=== PATIENT | female | born 1965 | race Caucasian/White ===

== ENCOUNTER 2016-07-02 21:10 | Inpatient (IN) | payer OTHER ==
[~2016-07-02] VITALS: Ht 165.1 cm; Wt 68.4 kg
--- NOTE | ~2016-07-02 | HC ---
[facility] [place] [address] CONSULTATION Name: ALIE KENYON Room #: 436-P ADM IN M.R.#: [id number] Admission: 07/02/16 Attend Phys: Boris Mclean Discharge: Date of : 67 Report #: [id number] THIS REPORT FOR: //name// CC: FAM unknown Boris Mclean ____ ____ REASON FOR CONSULTATION: The patient is a 51-year-old woman, who was admitted to [facility] with weakness, poor appetite, and jaundice over the past 1-2 weeks. HISTORY OF PRESENT ILLNESS: This patient admittedly reports she has a history of alcohol abuse. Apparently, this has been discussed in the past and she was told she had an alcoholic problem, but she never did anything about it. On the history and physical, it is reported that she consumes up to eight shots daily. When asked if she consumed more in the past, she admitted to at one point, consuming 12-15 shots per day. Her last alcohol intake was about 3 days ago. In the past 1-2 weeks, she has been feeling bad. She has had some nausea and dry heaves. She said in her own words, she felt "yucky." She also reports that she has not been eating in the past 1-2 weeks. Family members noted that she turned jaundiced. She says she has never noted that before and was not aware that she was jaundiced. She became more lethargic and confused and was brought to [facility] and she is admitted to the Intensive Care Unit. She did have a drop in her blood pressure and has required pressors in the ICU. PAST MEDICAL HISTORY: She has been a long-term cigarette smoker and has chronic obstructive pulmonary disease and we treated for that problem. She has peripheral neuropathy and she says she does not know why she has the neuropathy and she has not been taking her medicines recently. She has been treated for reflux disease and reports that Prilosec does a good job. She does not have any esophageal dysphagia. She has vitamin D deficiency and she has been treated for depression. PAST SURGICAL HISTORY: Several fractures are thought to be related to falls and related to alcohol abuse. She has had surgeries for those fractures. She has had right inguinal hernia repair, left knee arthroscopy, and bilateral tube ligation. ALLERGIES: She reports PENICILLIN and she is not aware of any other allergies. HOME MEDICATIONS: Are little difficult because she does not answer all questions. As best I can tell, she has been taking BuSpar and Proventil inhaler. Apparently, she is supposed to be on Lyrica and gabapentin, but has not taken those medications. She does take her Prilosec. She denies use of nonsteroidals. [facility] [address] [place] [address] CONSULTATION Name: ALIE KENYON Room #: 436-P ADM IN M.R.#: [id number] Admission: 07/02/16 Attend Phys: Boris Mclean Discharge: Date of : 67 Report #: [id number] FAMILY HISTORY: No family history of colon cancer. She said she is not aware of any family history of liver disease. Her mother was an alcoholic, but the patient states she does not know why her mother . SOCIAL HISTORY: Long-term alcoholic and she reports heavily the past 5 years, she smokes up to a pack a day, but says she has only been smoking a few cigarettes in the recent weeks. She lives with her boyfriend. She does smoke marijuana. She is on disability for her peripheral neuropathy. REVIEW OF SYSTEMS: Was very difficult to obtain because the patient at times just would not answer questions. CENTRAL NERVOUS SYSTEM: She reports she has not had any seizures or strokes. HEENT: She said yes, but would not give specifics. PULMONARY: Chronic lung disease and uses inhaler. CARDIOVASCULAR: She has had some chest pain in the past, but does not give specifics. GASTROINTESTINAL: She has not been jaundiced before. Essentially, the rest of the review, she just did not answer questions. PHYSICAL EXAMINATION: GENERAL: The patient is a very ____ woman, who is awake. She is alert. She is fairly well oriented and knew year, month, date and was off by one day on the day of the week. She did answer these questions but she was very slow with her responses. VITAL SIGNS: Blood pressure currently 99/66, pulse rate of 108, her blood pressure is currently 99/68. Initial blood pressures with systolics in the 60s and 70s. HEENT: Bilateral scleral icterus. Pupils equal and round. Oropharynx clear. NECK: Supple, no thyromegaly. CHEST: Occasional scattered rhonchi, no wheezes, good breath sounds. HEART: Regular rate and rhythm, S1, S2. ABDOMEN: Normal bowel sounds, soft. Mild diffuse tenderness. No point tenderness. No rebound, no rigidity. I do not appreciate ascites. RECTAL: Not done. EXTREMITIES: Without cyanosis, clubbing, or edema. NEUROLOGIC: Oriented to ____ as noted above. She is markedly tremulous in both upper extremities as well as her head. I cannot discern asterixes from a generalized tremor. She moves all 4 extremities. SKIN: She is icteric. She does have spider nevi on her face. ASSESSMENT AND PLAN: 1. Jaundice, likely secondary to alcohol. We will check hepatitis serology, in particular hepatitis C. 2. Altered mental status, alcohol withdrawal versus encephalopathy. She is at least mildly encephalopathic. When asked to do math computations, she said, "I [facility] [address] [place] [address] CONSULTATION Name: ALIE KENYON Room #: 436-P ADM IN M.R.#: [id number] Admission: 07/02/16 Attend Phys: Boris Mclean Discharge: Date of : 67 Report #: [id number] cannot concentrate." Agree with lactulose. 3. Hypertension. This could be related to sepsis, also may be related to metabolic issues and liver disease and poor intake and dehydration. 4. Anemia. Initial hemoglobin 5.9. MCV is slightly elevated at 101.9. Platelets are normal. White count was initially 18,300 and has dropped to 9.8. She denies rectal bleeding. 5. Questionable urinary tract infection. 6. Alcohol abuse, this she admits has been discussed in the past, but she has made no efforts to stop. 7. Chronic obstructive pulmonary disease, smoker. 8. Protein calorie malnutrition. 9. Nausea and vomiting, multifactorial, related to liver disease and renal problems: 10. Peripheral neuropathy, etiology unknown. 11. Kidney injury, likely acute. Drop in creatinine from 3.0 to 2.5 is a positive sign with regards to possible hepatorenal. This may be severe dehydration due to inadequate oral intake. Continue to monitor. LABORATORY STUDIES: Hemoglobin 5.9 and 11.8 after transfusion; MCV normal; white count initially 18.3, now normal; platelets are normal. INR was initially 1.7 and 1.9 this morning. Sodium 127; potassium of 3.4, it was initially 2.2; creatinine was initially 3, now down to 2.5; BUN of 17; lactic acid of ____; blood sugar 188; serum iron low at 23. TIBC low at 95, saturation 24%, ferritin somewhat elevated 594, total bilirubin was 11.6 and now down to 9.4, Ammonia elevated at 69. Lipase normal, tox screen positive for opioids and marijuana, her serum alcohol less than 10. Urinalysis positive for nitrites, bilirubin, positive for leukocyte esterase. She has greater than 25 wbcs in her urine. Radiologic: Ultrasound reveals hepatosplenomegaly. Chest x-ray negative. CT was done without contrast, which revealed a diffusely enlarged liver with evidence of fatty infiltration, also gallbladder sludge without evidence of acute cholecystitis. Spleen, which was 15.3 cm, pancreas unremarkable. Bowel was normal. She has diverticulosis, but no diverticulitis, small amount of free fluid in the pelvis. She does not have significant ascites. <ELECTRONICALLY SIGNED> By: Mc Perla MD 07/04/16 1805 [id number] [id number] Mc Perla MD /nt
--- NOTE | ~2016-07-02 | H ---
[facility] [place] [address] HISTORY AND PHYSICAL Name: ALIE KENYON Room #: 436-P ADM IN M.R.#: [id number] Admission: 07/02/16 Attend Phys: Boris Mclean Discharge: Date of : 67 Report #: [id number] THIS REPORT FOR: //name// CC: FAM unknown Boris Mclean DATE OF ADMISSION: 07/02/2016 ATTENDING PHYSICIAN: Jane Mclean PRIMARY CARE PHYSICIAN: eBti Lam M.D. CHIEF COMPLAINT: Dizziness and weakness. HISTORY OF PRESENT ILLNESS: The patient is a 51-year-old female, who came into the ER stating she has not been feeling well for about a week. She has been having persistent nausea with some dry heaving and overall has not been eating well. Her sister had told her she was starting to look yellow. The patient had not noticed this herself. She denies any history of kidney or liver problems. She did noticed that her urine was very dark and foul smelling and she was also voiding more frequently. She denies any diarrhea. Denies any black stools. Denies any fevers or chills. She does have some abdominal pain, which has been achy and constant. She also reports some dizziness, and this was worse with standing. She does drink alcohol regularly up to 8 shots of whiskey per day, which she drinks in the evenings. Because she has been feeling so bad, she has not had any alcohol to drink in the last 3 days. Per her sister, the patient was acting confused as well. She really has not been taking any of her medications ever previously prescribed, other than her depression medicine. She is not on any narcotics. In the ER, she was noticed to be quite jaundiced and her labs did reveal probable sepsis. She drops her blood pressure in the ER and has since had multiple IV fluids as well as center line placed and has required vasoactive medicines to keep her blood pressure up at this time. She is currently being seen in the ICU. She is drowsy, but arouses easily and able to answer most questions. PAST MEDICAL HISTORY: COPD, peripheral neuropathy, GERD, vitamin D deficiency, and depression. PAST SURGICAL HISTORY: Right tibia fibula repair after fractures x 2, right inguinal hernia repair, left knee scope, bilateral tubal ligation. ALLERGIES: PENICILLIN, unknown reaction. HOME MEDICATIONS: She has really only been taking her BuSpar and her Proventil inhaler p.r.n. She was supposed to be taking Lyrica and gabapentin, but that she has been out of these medications for at least a month. [address] [address] HISTORY AND PHYSICAL Name: ALIE KENYON Room #: [address] [place] [address] IN M.R.#: [id number] Admission: 07/02/16 Attend Phys: Boris Mclean Discharge: Date of : 67 Report #: [id number] SOCIAL HISTORY: The patient drinks 8 shots of whiskey per day in the evenings. She says she has only been drinking this heavily for the last 5 years. She has not had any drinks from the last 3 days, she does smoke currently 3 cigarettes per day, but has previously been smoking up to 1 pack of cigarettes per day. She has been smoking on and off for 15 years. She lives at home with her boyfriend. She does smoke marijuana rarely. She denies any history of IV drug use. She is on disability. FAMILY HISTORY: Significant for emphysema in her mother and CHF in her father. REVIEW OF SYSTEMS: [facility] from [facility] were reviewed and over the course of the last few years, she was seen there multiple times for fractures related to falls associated with alcohol intoxification and all other 12-point review of systems was reviewed with the patient, otherwise negative unless stated in the HPI. PHYSICAL EXAMINATION: GENERAL: The patient is somewhat lethargic female in no acute distress. VITAL SIGNS: Temperature 36.7, heart rate is initially 118, it is now 93, respirations 20, blood pressure is 87/51, oxygen 94% on 2 liters O2. HEENT: PERRLA. Sclerae is icteric. Oral mucosa is pink and dry. She has no saliva. NECK: Supple, no JVD noted. CARDIOVASCULAR: Normal S1, S2. No murmurs, rubs or gallops. RESPIRATORY: Breath sounds are with some scattered expiratory wheezes bilaterally, diminished in bilateral lower lobes. The patient does have a loose nonproductive cough. ABDOMEN: Round and somewhat firm. She is diffusely tender, but no guarding or rigidity. She does have some palpable hepatomegaly. Bowel sounds are positive. VASCULAR: 1+ bilateral lower extremity edema. Pedal pulses are 2+. NEUROLOGIC: The patient is somewhat sleepy, but arouses easily and is able to answer most questions. She will follow commands. She is very shaking and her bilateral upper extremities without some asterixis. I did not have her ambulate. Speech is clear. SKIN: She is very jaundiced throughout most evident in her face and there are few scattered bruises, but no open wounds. GENITOURINARY: She does have a Eugene catheter in place, draining very small amount of very concentrated lucio colored urine. LABORATORY DATA AND DIAGNOSTICS: WBC is 18.3 with bands of 14%, hemoglobin initially was 7.6, but did drop to 5.9 and platelets 306. Sodium 128, potassium 2.2, BUN 17, creatinine 3.0. Glucose 137. Lactic acid is 5.1, bilirubin 11.6. LFTs showed an AST of 91. ALT of 23 and alkaline phosphatase of 272. Albumin is 1.4, lipase is 33. test is negative and INR 1.7, magnesium is 1.2. Chest x-ray showed no acute cardiopulmonary process. There was prior old healed left rib fracture and chronic appearing nonunion fracture of the distal [facility] [address] [place] [address] HISTORY AND PHYSICAL Name: ALIE KENYON Room #: [facility]- ADM IN ..#: [id number] Admission: 07/02/16 Attend Phys: Boris Mclean Discharge: Date of : 67 Report #: [id number] right clavicle and abdominal ultrasound showed normal gallbladder. She does have hepatosplenomegaly. There is no mass or ductal dilatation. EKG shows sinus rhythm with borderline prolonged IN interval. UA showed positive nitrites, 3+ leukocyte esterase, many WBCs, many bacteria, 1+ ketones. ASSESSMENT AND PLAN: 1. Sepsis, likely related to urinary tract infection. We will send urine for culture and follow blood cultures as well. Continue Levaquin. 2. Acute renal failure. She denies any history of chronic kidney disease. This is likely prerenal due to dehydration versus hepatorenal syndrome. We will continue with hydration and follow labs. 3. Severe anemia. Her hemoglobin did drop after IV fluids. She may have possible gastrointestinal bleed, as rectal exam stool did reveal trace hemoccult positive in the ER. We will transfuse 2 units of blood, as this will help with her hypotension and follow labs. 4. Probable liver cirrhosis. This is likely alcohol ____. She does have associated elevated bilirubin as well as liver function test with coagulopathy and possible ascites. GI is consulted for further recommendations. We will go ahead and order a noncontrast CT of the abdomen to further evaluate for ascites, as significant enough to perform paracentesis. Also check lyly-fetoprotein level. 5. Alcohol abuse. The patient has been advised to quit. We will be placed on modified alcohol withdrawal protocol and use Ativan p.r.n. 6. Tobacco abuse. The patient has been advised to quit. 7. Hypokalemia and hypomagnesium. We will replace these and follow labs. 8. Tzlcb-gf-fneqtal respiratory failure due to chronic obstructive pulmonary disease. We will add IV steroids and breathing treatments and Pulmonary is consulted. 9. Severe protein calorie malnutrition. We will work with high protein supplements. 10. Nausea, vomiting, likely related to her kidney and liver problems and infection. Continue supportive care with IV fluids and antiemetics. 11. Deep venous thrombosis prophylaxis, place sequential compression devices. We will continue to follow the patient closely throughout the hospitalization and make changes based on clinical status. <ELECTRONICALLY SIGNED> By: KALEE Johnson 07/05/16 0608 0712 0933 KALEE Johnson /nt
--- NOTE | ~2016-07-02 | HC ---
[facility] [place] [address] CONSULTATION Name: ALIE KENYON Room #: 436-P ADM IN M.R.#: [id number] Admission: 07/02/16 Attend Phys: Boris Mclean Discharge: Date of : 67 Report #: [id number] THIS REPORT FOR: //name// CC: FAM unknown Boris Mclean HISTORY OF PRESENT ILLNESS: The patient is a 51-year-old white female who was admitted with dizziness and weakness. She has a history of ETOH abuse up to 8 shots per day of whisky for which she has taken over the last 5 years. She was noted to have sepsis with acute renal insufficiency. She has acute on chronic liver failure, noted to have delirium tremens for which she has been receiving intermittent Valium, protein-calorie malnutrition, acute renal insufficiency, and urinary tract infection. She does have a peripheral neuropathy with bilateral lower extremity pain, dysesthesias, and decreased strength. She also was noted to have acute alcohol withdrawal with alcoholic hepatitis. Ammonia level has been rising and she has hepatic encephalopathy. Her last pneumonia was 107, which is an increase from 63. We are seeing her in rehabilitation medicine consultation. PAST MEDICAL HISTORY: Includes COPD, peripheral neuropathy, GERD, vitamin D deficiency, and depression. She has had a history of previous falls related to alcohol intoxication. PAST SURGICAL HISTORY: Includes a right tibia and fibula repair after fractures times 2, right inguinal hernia repair, and left knee scope. ALLERGIES: PENICILLIN, unknown reaction. MEDICATIONS: Please see the full medication listing. HABITS: Tobacco up to 1 pack per day. Alcohol abuse as noted above. SOCIAL HISTORY: She lives with a significant other in either an apartment or a mobile home. There were two sisters that live locally as well as a couple of daughters. There are plans for her to eventually go home with one of the daughters when she is doing better per case management notes. Premorbidly, she apparently slept until noon and was limited in her premorbid ambulation. DIET: She is currently on a pureed nectar thickened liquid diet per speech therapy. REVIEW OF SYSTEMS: Did not offer any current complaints of chest pain, shortness of breath or abdominal discomfort. She does have chronic lower extremity dysesthetic pain and complaints of distal weakness. PHYSICAL EXAMINATION: GENERAL: A 51-year-old white female, appears older than stated age. [address] [address] CONSULTATION Name: ALIE KENYON Room #: 436-P [facility] IN M.R.#: [id number] Admission: 07/02/16 Attend Phys: Boris Mclean Discharge: Date of : 67 Report #: [id number] VITAL SIGNS: Temperature 36.7, pulse 95, respirations 20, and blood pressure 128/64. NEUROLOGIC: She is alert. She was able to tell the place and the year. She does follow basic 1 step commands. Facies appeared to be symmetric. ABDOMEN: Obese, soft, nontender. EXTREMITIES: Functional range of motion of both upper extremities with strength a grade 3+/5. DTRs are decreased. Lower extremities, no focal calf swelling, functional range of motion with strength a grade 3+ to 4-/5. She does have decreased sensation in a stocking distribution, notes some painful dysesthesias of the lower extremities. Functionally, she is max assist with sit to stand transfers holding the therapist's arms. She was able to walk 8 feet with min assist in physical therapy. This was with the front-wheeled walker. She has essentially ambulated 4 feet forward and backward. ASSESSMENT: A 51-year-old white female with the following problem list: 1. Peripheral polyneuropathy. 2. Hepatic encephalopathy. 3. Delirium tremens. 4. End-stage liver disease. 5. Question hepatorenal. 6. Acute renal insufficiency. 7. Alcoholism. 8. Sepsis. 9. Urinary tract infection. 10. Alcoholic hepatitis. PLAN: She is being monitored regarding her rising ammonia level. She is being treated intermittently with Valium for alcohol withdrawal. She is being monitored regarding renal insufficiency. She is slowly progressing with her therapies and was able to ambulate the short distance today noted above. She certainly may be a candidate for an acute in-hospital inpatient rehabilitation stay to maximize her functional independence and strength and endurance to try to get back into the home setting. The multiple behavioral consultant physicians could continue to follow along with her while she is on the rehab spring as she does have considerable medical complexity issues. At this point, we will continue to follow along with you and check with insurance regarding rehab unit transfer as she further medically stabilizes. Thank you for asking us to assist in this patient's care. By: [id number] Feliz Colón MD /nt
--- NOTE | ~2016-07-02 | EKG ---
[address] [place] [address] ELECTROCARDIOGRAM REPORT Name: KENYONALIE Room #: 240-P ADM IN M.R.#: [id number] Admission: 07/02/16 Attend Phys: Boris Mclean Discharge: Date of : 67 Report #: [id number] THIS REPORT FOR: //name// [facility] ED Test Date: 2016-07-02 Test Time: 21:45:41 Pat Name: ALIE KENYON Department: Room: 240 Gender: F Technical Consultant: ROXANA : 1965 Requested By: Dejan Santiago Order Number: [id number] MD: Angel Hernandez Measurements Intervals [place] Rate: 94 P: 71 IA: 199 QRS: 61 QRSD: 97 T: QT: 426 QTc: 533 Interpretive Statements Sinus rhythm Borderline prolonged IA interval Nonspecific ST and T wave abnormality Artifact in lead(s) I,aVR,aVL,aVF No previous ECG available for comparison Electronically Signed On 07-03-2016 11:51:17 CDT by Angel Hernandez [email or web address] <ELECTRONICALLY SIGNED> By: Angel Hernandez MD, [facility] 07/03/16 1151 2145 2145 Angel Hernandez MD, [facility] /EPI
[2016-07-02 21:11] VITALS: BP 87/51
[2016-07-02 21:45] LABS: HEMATOCRIT 22.7 % (37.0-47.0); HEMOGLOBIN 7.6 gm/dL (12.0-15.0); MCH 34.1 pg (26.0-34.0); MCHC 33.7 g/dL (28.0-37.0); MCV 101.1 fL (80.0-100.0); PLATELET COUNT 306 thou/uL (150-400); RBC 2.24 mil/uL (4.20-5.00); RDW 17.3 % (10.5-14.5); WBC 18.3 thou/uL (4.0-11.0)
[2016-07-02 21:47] LABS: MANUAL DIFF YES
[2016-07-02 22:05] LABS: ANION GAP 16 mmol/L (7-16); BUN 17 mg/dL (7-18); CALCIUM 7.7 mg/dL (8.5-10.1); CHLORIDE 87 mmol/L (98-107); CO2 25 mmol/L (21-32); SODIUM 128 mmol/L (136-145)
[2016-07-02 22:10] LABS: ALBUMIN 1.4 g/dL (3.4-5.0); ALKALINE PHOSPHATASE 272 U/L (46-116); SGOT 91 U/L (15-37); SGPT 23 U/L (30-65); TOTAL BILIRUBIN 11.6 mg/dL (<0.1-1.0); TROPONIN-I < 0.04 ng/mL (<0.04-0.07)
[2016-07-02 22:15] LABS: POTASSIUM 2.2 mmol/L (3.5-5.1)
[2016-07-02 22:29] LABS: ABSOLUTE NEUTROPHILS 16.1 thou/uL (1.4-8.2); TOTAL CELL COUNT 100
[2016-07-02 22:33] LABS: ANISOCYTOSIS 1+; POLYCHROMASIA 3+
[2016-07-02 22:39] LABS: GLUCOSE 137 mg/dL (74-106); TOTAL PROTEIN 5.8 g/dL (6.4-8.2)
[2016-07-02 23:11] LABS: URINE BILIRUBIN 3+ (Negative); URINE BLOOD 1+ (Negative); URINE COLOR BROWN; URINE GLUCOSE-RANDOM* TRACE (Negative); URINE KETONES 1+ (Negative); URINE LEUKOCYTES-REFLEX 3+ (Negative); URINE PROTEIN (DIPSTICK) 2+ (Negative); URINE UROBILINOGEN >= 8.0 E.U./dl (0.2-1.0)
[2016-07-02 23:13] LABS: ICTOTEST (BILI CONFIRMATORY) Positive (Negative)
[2016-07-02 23:25] LABS: CASTS None Seen /LPF (None Seen); SQUAMOUS None Seen /LPF (0-3)
[2016-07-02 23:26] LABS: CRYSTALS None Seen /LPF (None Seen); TRANSITIONAL EPITHEL CELL 4-10 Moderate /LPF (None Seen); URINE RBC 0-2 Rare /HPF (0-2); URINE WBC-REFLEX >25 Many /HPF (0-5)
[2016-07-03] VITALS (60 sets, daily range): BP systolic 68–125; BP diastolic 48–95
[2016-07-03 00:29] LABS: APTT 34.9 Seconds (24.5-32.8); INR 1.7; PROTIME 17.4 Seconds (9.3-11.4)
[2016-07-03 01:10] LABS: MCH 34.4 pg (26.0-34.0)
[2016-07-03 01:11] LABS: MCHC 33.8 g/dL (28.0-37.0); MCV 101.9 fL (80.0-100.0); RBC 1.73 mil/uL (4.20-5.00); RDW 17.3 % (10.5-14.5); WBC 9.8 thou/uL (4.0-11.0)
[2016-07-03 01:21] LABS: MAGNESIUM 1.2 mg/dL (1.8-2.4)
[2016-07-03 01:24] LABS: HEMOGLOBIN 5.9 gm/dL (12.0-15.0)
[2016-07-03 01:25] LABS: HEMATOCRIT 17.6 % (37.0-47.0)
[2016-07-03 01:40] LABS: ABG SAMPLE TYPE VENOUS; BE(vivo) 1.3 mmol/L (-2 to +3); HCO3 26.3 mmol/L (22.0-26.0); LACTATE 2.93 mmol/L (0.5-2.0); O2(CT) 5.6 mL/dL (15.0-23.0); O2Hb VENOUS 51.4 (65.0-85.0); PCO2 VENOUS 43.5 mmHg (41.0-51.0); PO2 VENOUS 32.8 mmHg (35.0-45.0); STICK SITE LINE; sO2 VENOUS 62.7 % (65.0-85.0); tCO2 27.6 mmol/L (24.0-30.0)
[2016-07-03 01:49] LABS: ABG SAMPLE TYPE ARTERIAL; BE(vivo) 1.3 mmol/L (-2 to +3); HCO3 25.5 mmol/L (22.0-26.0); LACTATE 3.09 mmol/L (0.5-2.0); O2(CT) 11.5 mL/dL (15.0-23.0); PCO2 38.2 mmHg (35.0-45.0); PO2 74.1 mmHg (80.0-100.0); STICK SITE L.RADIAL; pH 7.442 (7.360-7.450); sO2 95.4 % (92.0-98.0); tCO2 26.7 mmol/L (24.0-30.0)
[2016-07-03 01:52] LABS: CALCIUM 6.7 mg/dL (8.5-10.1); CREATININE 2.5 mg/dL (0.6-1.0); TOTAL BILIRUBIN 9.4 mg/dL (<0.1-1.0)
[2016-07-03 02:10] LABS: POTASSIUM 2.6 mmol/L (3.5-5.1); TOTAL PROTEIN 4.9 g/dL (6.4-8.2)
[2016-07-03 02:14] LABS: FIBRINOGEN 274.8 mg/dL (210-360); INR 1.9; PROTIME 19.3 Seconds (9.3-11.4)
[2016-07-03 02:26] LABS: ABG SAMPLE TYPE VENOUS; BE(vivo) 1.6 mmol/L (-2 to +3); HCO3 25.9 mmol/L (22.0-26.0); O2(CT) 4.5 mL/dL (15.0-23.0); O2Hb VENOUS 46.3 (65.0-85.0); PO2 VENOUS 31.6 mmHg (35.0-45.0); STICK SITE LINE; sO2 VENOUS 63.2 % (65.0-85.0); tCO2 27.1 mmol/L (24.0-30.0)
[2016-07-03 02:34] LABS: APTT 38.2 Seconds (24.5-32.8)
[2016-07-03 03:31] LABS: ABG SAMPLE TYPE VENOUS; BE(vivo) -1.4 mmol/L (-2 to +3); HCO3 22.8 mmol/L (22.0-26.0); LACTATE 2.09 mmol/L (0.5-2.0); O2(CT) 4.7 mL/dL (15.0-23.0); O2Hb VENOUS 44.9 (65.0-85.0); PCO2 VENOUS 35.9 mmHg (41.0-51.0); STICK SITE LINE; sO2 VENOUS 61.2 % (65.0-85.0); tCO2 23.9 mmol/L (24.0-30.0)
[2016-07-03 04:27] LABS: ABG SAMPLE TYPE VENOUS; BE(vivo) -2.3 mmol/L (-2 to +3); HCO3 22.1 mmol/L (22.0-26.0); O2(CT) 6.8 mL/dL (15.0-23.0); O2Hb VENOUS 59.6 (65.0-85.0); PCO2 VENOUS 35.9 mmHg (41.0-51.0); STICK SITE LINE; sO2 VENOUS 71.5 % (65.0-85.0); tCO2 23.2 mmol/L (24.0-30.0)
[2016-07-03 04:35] LABS: PHOSPHORUS 2.2 mg/dL (2.5-4.9)
[2016-07-03 04:54] LABS: % SATURATION 24 % (20-39); IRON 23 ug/dL (50-170); TIBC 95 ug/dL (250-450); UIBC 72 ug/dL
[2016-07-03 05:32] LABS: AMP/METHAMP Negative (Negative); BARBITURATES Negative (Negative); BENZODIAZEPINES Negative (Negative); COCAINE Negative (Negative); METHADONE Negative (Negative); OPIATES POSITIVE (Negative); PCP Negative (Negative); THC POSITIVE (Negative)
[2016-07-03 05:41] LABS: ABG SAMPLE TYPE VENOUS; BE(vivo) -0.7 mmol/L (-2 to +3); HCO3 23.5 mmol/L (22.0-26.0); LACTATE 1.94 mmol/L (0.5-2.0); O2(CT) 8.9 mL/dL (15.0-23.0); O2Hb VENOUS 68.2 (65.0-85.0); PCO2 VENOUS 36.5 mmHg (41.0-51.0); STICK SITE LINE; sO2 VENOUS 76.7 % (65.0-85.0); tCO2 24.6 mmol/L (24.0-30.0)
[2016-07-03 05:54] LABS: CALCIUM 6.9 mg/dL (8.5-10.1); CREATININE 2.6 mg/dL (0.6-1.0); POTASSIUM 3.1 mmol/L (3.5-5.1)
[2016-07-03 06:03] LABS: FERRITIN 594 ng/mL (8-252)
[2016-07-03 06:04] LABS: FIBRINOGEN 295.6 mg/dL (210-360); INR 1.8; PROTIME 18.3 Seconds (9.3-11.4)
[2016-07-03 06:51] LABS: ABG SAMPLE TYPE VENOUS; BE(vivo) -10.1 mmol/L (-2 to +3); HCO3 13.9 mmol/L (22.0-26.0); LACTATE 0.88 mmol/L (0.5-2.0); O2(CT) 5.7 mL/dL (15.0-23.0); O2Hb VENOUS 69.7 (65.0-85.0); PCO2 VENOUS 23.3 mmHg (41.0-51.0); PO2 VENOUS 41.5 mmHg (35.0-45.0); STICK SITE LINE; sO2 VENOUS 78.2 % (65.0-85.0); tCO2 14.6 mmol/L (24.0-30.0)
[2016-07-03 10:08] LABS: HEMATOCRIT 34.9 % (37.0-47.0)
[2016-07-03 10:11] LABS: HEMOGLOBIN 11.8 gm/dL (12.0-15.0)
[2016-07-03 10:19] LABS: CALCIUM 7.3 mg/dL (8.5-10.1); CREATININE 2.5 mg/dL (0.6-1.0); POTASSIUM 3.4 mmol/L (3.5-5.1)
[2016-07-03 10:22] LABS: APTT 30.1 Seconds (24.5-32.8); FIBRINOGEN 342.3 mg/dL (210-360); INR 1.7; PROTIME 17.8 Seconds (9.3-11.4)
[2016-07-04] VITALS (26 sets, daily range): BP systolic 83–110; BP diastolic 55–74
[2016-07-04 04:44] LABS: HEMATOCRIT 26.2 % (37.0-47.0); MCH 33.3 pg (26.0-34.0); MCHC 34.6 g/dL (28.0-37.0); PLATELET COUNT 181 thou/uL (150-400); RBC 2.72 mil/uL (4.20-5.00); RDW 20.2 % (10.5-14.5); WBC 8.2 thou/uL (4.0-11.0)
[2016-07-04 04:47] LABS: INR 1.5
[2016-07-04 04:52] LABS: HEMOGLOBIN 9.1 gm/dL (12.0-15.0); MCV 96.4 fL (80.0-100.0)
[2016-07-04 04:53] LABS: MANUAL DIFF YES
[2016-07-04 05:13] LABS: ALBUMIN 1.2 g/dL (3.4-5.0); CALCIUM 6.3 mg/dL (8.5-10.1); CREATININE 2.3 mg/dL (0.6-1.0); MAGNESIUM 1.9 mg/dL (1.8-2.4); POTASSIUM 3.2 mmol/L (3.5-5.1); TOTAL BILIRUBIN 9.8 mg/dL (<0.1-1.0); TOTAL PROTEIN 4.8 g/dL (6.4-8.2)
[2016-07-04 05:44] LABS: ABSOLUTE NEUTROPHILS 7.5 thou/uL (1.4-8.2); ANISOCYTOSIS 3+; MACROCYTES 2+; TOTAL CELL COUNT 100
[2016-07-04 05:45] LABS: MICROCYTES 1+
[2016-07-04 14:08] LABS: HEPATITIS C VIRUS AB <0.1 (0.0-0.9)
[2016-07-05 01:10] LABS: 25-HYDROXY TOTAL 22.3 ng/mL (30.0-100.0)
[2016-07-05 03:43] LABS: HEMATOCRIT 26.4 % (37.0-47.0); MCH 33.1 pg (26.0-34.0); MCHC 34.1 g/dL (28.0-37.0); MCV 97.2 fL (80.0-100.0); PLATELET COUNT 192 thou/uL (150-400); RBC 2.71 mil/uL (4.20-5.00); RDW 20.3 % (10.5-14.5); WBC 8.4 thou/uL (4.0-11.0)
[2016-07-05 03:45] LABS: MANUAL DIFF YES
[2016-07-05 03:56] LABS: ALBUMIN 1.2 g/dL (3.4-5.0); CREATININE 2.2 mg/dL (0.6-1.0); MAGNESIUM 1.7 mg/dL (1.8-2.4); POTASSIUM 3.1 mmol/L (3.5-5.1); TOTAL BILIRUBIN 6.6 mg/dL (<0.1-1.0)
[2016-07-05 04:04] LABS: CALCIUM 5.6 mg/dL (8.5-10.1)
[2016-07-05 04:29] LABS: INR 1.3; PROTIME 13.4 Seconds (9.3-11.4)
[2016-07-05 04:37] LABS: ABSOLUTE NEUTROPHILS 7.7 thou/uL (1.4-8.2); ANISOCYTOSIS 2+; MACROCYTES 1+; TOTAL CELL COUNT 100
[2016-07-05 04:38] LABS: MICROCYTES 1+; POLYCHROMASIA 1+
[2016-07-05 04:54] VITALS: BP 113/65
[2016-07-05 06:08] LABS: FREE T4 0.79 ng/dL (0.82-1.77)
[2016-07-05 08:00] VITALS: BP 112/76
[2016-07-05 11:47] VITALS: BP 125/84
[2016-07-05 12:08] LABS: CERULOPLASMIN 25.8 mg/dL (19.0-39.0)
[2016-07-05 16:00] VITALS: BP 116/66
[2016-07-05 20:03] VITALS: BP 124/71
[2016-07-05 23:38] VITALS: BP 128/60
[2016-07-06 04:40] VITALS: BP 132/89
[2016-07-06 05:22] LABS: ALBUMIN 1.3 g/dL (3.4-5.0); CALCIUM 6.2 mg/dL (8.5-10.1); CREATININE 1.9 mg/dL (0.6-1.0); MAGNESIUM 1.5 mg/dL (1.8-2.4); PHOSPHORUS 1.9 mg/dL (2.5-4.9); POTASSIUM 3.1 mmol/L (3.5-5.1); TOTAL BILIRUBIN 5.2 mg/dL (<0.1-1.0)
[2016-07-06 05:35] LABS: TOTAL PROTEIN 4.7 g/dL (6.4-8.2)
[2016-07-06 08:00] VITALS: BP 115/84
[2016-07-06 09:09] LABS: MITOCHONDRIAL ANTIBODY 4.8 Units (0.0-20.0)
[2016-07-06 14:36] LABS: POTASSIUM 3.2 mmol/L (3.5-5.1)
[2016-07-06 16:26] VITALS: BP 137/96
[2016-07-06 19:45] VITALS: BP 104/63
[2016-07-07 06:31] LABS: ALBUMIN 1.3 g/dL (3.4-5.0); CREATININE 1.3 mg/dL (0.6-1.0); MAGNESIUM 1.7 mg/dL (1.8-2.4); POTASSIUM 3.8 mmol/L (3.5-5.1); TOTAL BILIRUBIN 5.5 mg/dL (<0.1-1.0)
[2016-07-07 07:11] LABS: CALCIUM 5.9 mg/dL (8.5-10.1)
[2016-07-07 08:13] VITALS: BP 128/64
[2016-07-07 11:49] VITALS: BP 137/63
[2016-07-07 16:16] VITALS: BP 126/79
[2016-07-07 19:20] VITALS: BP 120/84
[2016-07-08 04:15] VITALS: BP 120/67
[2016-07-08 05:58] LABS: ALBUMIN 1.3 g/dL (3.4-5.0); CALCIUM 6.9 mg/dL (8.5-10.1); MAGNESIUM 1.6 mg/dL (1.8-2.4); POTASSIUM 3.6 mmol/L (3.5-5.1); TOTAL BILIRUBIN 6.2 mg/dL (<0.1-1.0)
[2016-07-08 06:26] LABS: TOTAL PROTEIN 4.7 g/dL (6.4-8.2)
[2016-07-08 08:00] VITALS: BP 127/79
[2016-07-08 12:00] VITALS: BP 132/91
[2016-07-08 16:00] VITALS: BP 119/90
[2016-07-08 19:27] VITALS: BP 102/74
[2016-07-09 03:01] VITALS: BP 99/53
[2016-07-09 05:42] LABS: HEMATOCRIT 24.2 % (37.0-47.0); HEMOGLOBIN 7.9 gm/dL (12.0-15.0); MCH 32.3 pg (26.0-34.0); MCHC 32.5 g/dL (28.0-37.0); MCV 99.4 fL (80.0-100.0); RBC 2.44 mil/uL (4.20-5.00); RDW 19.4 % (10.5-14.5); WBC 11.6 thou/uL (4.0-11.0)
[2016-07-09 05:55] LABS: INR 1.2; PROTIME 12.8 Seconds (9.3-11.4)
[2016-07-09 05:58] LABS: ALBUMIN 1.2 g/dL (3.4-5.0); CALCIUM 7.2 mg/dL (8.5-10.1); CREATININE 0.8 mg/dL (0.6-1.0); TOTAL BILIRUBIN 5.4 mg/dL (<0.1-1.0); TOTAL PROTEIN 4.4 g/dL (6.4-8.2)
[2016-07-09 06:10] LABS: POTASSIUM 2.9 mmol/L (3.5-5.1)
[2016-07-09 08:00] VITALS: BP 115/68
[2016-07-09 11:46] VITALS: BP 103/69
[2016-07-09 12:53] LABS: ABSOLUTE NEUTROPHILS 9.1 thou/uL (1.4-8.2); BASOPHILS 0.3 % (0.0-2.0); EOSINOPHILS 1.1 % (0.0-3.0); HEMATOCRIT 25.1 % (37.0-47.0); HEMOGLOBIN 8.3 gm/dL (12.0-15.0); LYMPHOCYTES 13.5 % (24.0-44.0); MCH 32.5 pg (26.0-34.0); MCHC 32.9 g/dL (28.0-37.0); MCV 98.7 fL (80.0-100.0); MONOCYTES 6.7 % (1.0-8.0); PLATELET COUNT 134 thou/uL (150-400); POLYS 78.4 % (36.0-66.0); RBC 2.55 mil/uL (4.20-5.00); RDW 18.6 % (10.5-14.5); WBC 11.6 thou/uL (4.0-11.0)
[2016-07-09 12:55] LABS: MANUAL DIFF NO
[2016-07-09 16:00] VITALS: BP 111/67
[2016-07-09 19:20] VITALS: BP 101/59
[2016-07-10 05:20] VITALS: BP 110/57
[2016-07-10 07:48] VITALS: BP 110/54
[2016-07-10 10:19] LABS: CALCIUM 7.3 mg/dL (8.5-10.1); CREATININE 0.7 mg/dL (0.6-1.0); POTASSIUM 3.9 mmol/L (3.5-5.1)
[2016-07-10 10:23] LABS: ALBUMIN 1.2 g/dL (3.4-5.0); PHOSPHORUS 2.7 mg/dL (2.5-4.9)
[2016-07-10 12:17] VITALS: BP 102/61
[2016-07-10 15:53] VITALS: BP 103/72
[2016-07-10 19:30] VITALS: BP 104/62
[2016-07-11 03:15] VITALS: BP 110/70
[2016-07-11 03:48] LABS: ALBUMIN 1.3 g/dL (3.4-5.0); CALCIUM 7.3 mg/dL (8.5-10.1); CREATININE 0.7 mg/dL (0.6-1.0); POTASSIUM 3.7 mmol/L (3.5-5.1); TOTAL BILIRUBIN 3.2 mg/dL (<0.1-1.0); TOTAL PROTEIN 4.9 g/dL (6.4-8.2)
[2016-07-11 04:08] LABS: HEMATOCRIT 22.3 % (37.0-47.0); HEMOGLOBIN 7.4 gm/dL (12.0-15.0); MCH 32.8 pg (26.0-34.0); MCHC 33.1 g/dL (28.0-37.0); RBC 2.26 mil/uL (4.20-5.00); RDW 18.1 % (10.5-14.5); WBC 12.1 thou/uL (4.0-11.0)
[2016-07-11 08:07] VITALS: BP 122/70
[2016-07-11 14:05] VITALS: BP 100/58
[2016-07-11 15:54] VITALS: BP 114/62
[2016-07-11 19:15] VITALS: BP 116/71
[2016-07-12 03:45] VITALS: BP 118/72
[2016-07-12 04:36] LABS: HEMATOCRIT 22.3 % (37.0-47.0); HEMOGLOBIN 7.3 gm/dL (12.0-15.0); MCH 32.5 pg (26.0-34.0); MCHC 32.9 g/dL (28.0-37.0); MCV 98.9 fL (80.0-100.0); RBC 2.26 mil/uL (4.20-5.00); RDW 17.8 % (10.5-14.5); WBC 12.2 thou/uL (4.0-11.0)
[2016-07-12 04:48] LABS: ALBUMIN 1.2 g/dL (3.4-5.0); CALCIUM 7.8 mg/dL (8.5-10.1); CREATININE 0.6 mg/dL (0.6-1.0); POTASSIUM 3.4 mmol/L (3.5-5.1); TOTAL BILIRUBIN 3.8 mg/dL (<0.1-1.0)
[2016-07-12 05:00] LABS: TOTAL PROTEIN 5.3 g/dL (6.4-8.2)
[2016-07-12 08:00] VITALS: BP 135/62
[2016-07-12 10:17] LABS: URINE BILIRUBIN 2+ (Negative); URINE BLOOD TRACE (Negative); URINE COLOR YELLOW; URINE GLUCOSE-RANDOM* NEGATIVE (Negative); URINE KETONES NEGATIVE (Negative); URINE LEUKOCYTES-REFLEX TRACE (Negative); URINE PROTEIN (DIPSTICK) TRACE (Negative); URINE SPECIFIC GRAVITY 1.015 (1.003-1.035); URINE UROBILINOGEN 0.2 E.U./dl (0.2-1.0)
[2016-07-12 10:20] LABS: ICTOTEST (BILI CONFIRMATORY) Positive (Negative)
[2016-07-12 11:40] VITALS: BP 107/71; BP 109/68
[2016-07-12 16:00] VITALS: BP 106/67
[2016-07-12 17:45] LABS: HEMATOCRIT 26.7 % (37.0-47.0)
== END 2016-07-12 18:20 | DRG 871 ==
LOC: ER 21:10 → EROBS 23:38 → ICU 23:38 → 4S 07-04 11:47
PROVIDERS: Emergency Medicine; Family Medicine; Hospitalist; Nurse Practitioner Acute Care; Nurse Practitioner Adult Health; Specialist
PROC: 30233N1 Transfusion of Nonautologous Red Blood Cells into Peripheral Vein, Percutaneous Approach (ICD-10-PCS; principal; 2016-07-03)
PROC: 02HV33Z Insertion of Infusion Device into Superior Vena Cava, Percutaneous Approach (ICD-10-PCS; 2016-07-03)
DX: A41.51 Sepsis due to Escherichia coli [E. coli] (principal); R65.21 Severe sepsis with septic shock; E43 Unspecified severe protein-calorie malnutrition; J96.20 Acute and chronic respiratory failure, unspecified whether with hypoxia or hypercapnia; K72.00 Acute and subacute hepatic failure without coma; J69.0 Pneumonitis due to inhalation of food and vomit; N17.9 Acute kidney failure, unspecified; N39.0 Urinary tract infection, site not specified; E87.1 Hypo-osmolality and hyponatremia; E87.2 Acidosis; F10.239 Alcohol dependence with withdrawal, unspecified; J44.9 Chronic obstructive pulmonary disease, unspecified; G62.9 Polyneuropathy, unspecified; E87.6 Hypokalemia; K70.10 Alcoholic hepatitis without ascites; K57.90 Diverticulosis of intestine, part unspecified, without perforation or abscess without bleeding; K72.90 Hepatic failure, unspecified without coma; I12.9 Hypertensive chronic kidney disease with stage 1 through stage 4 chronic kidney disease, or unspecified chronic kidney disease; N18.9 Chronic kidney disease, unspecified; D63.8 Anemia in other chronic diseases classified elsewhere; E86.0 Dehydration; K21.9 Gastro-esophageal reflux disease without esophagitis; F32.9 Major depressive disorder, single episode, unspecified; F17.210 Nicotine dependence, cigarettes, uncomplicated; Z82.49 Family history of ischemic heart disease and other diseases of the circulatory system; Z83.6 Family history of other diseases of the respiratory system; Z88.0 Allergy status to penicillin; Z87.81 Personal history of (healed) traumatic fracture; Z68.22 Body mass index [BMI] 22.0-22.9, adult; Z79.899 Other long term (current) drug therapy
CPT/HCPCS: 10100; 10203; 85076